=== PATIENT | male | born 1990 | race Caucasian/White ===

== ENCOUNTER 2020-01-13 14:19 | Emergency (ER) | payer MEDICAID ==
[2020-01-13 14:44] VITALS: BP 134/71; PULSE 91
--- NOTE | 2020-01-13 14:52 | EDM.PDOC ---
ED HPI GENERAL MEDICAL PROBLEM - General Chief Complaint: Lower Extremity Injury/Pain Stated Complaint: RIGHT FOOT IS PAINFUL Time Seen by Provider: 01/13/20 14:43 Source of Information: Reports: Patient, RN Notes Reviewed History Limitations: Reports: No Limitations - History of Present Illness INITIAL COMMENTS - FREE TEXT/NARRATIVE: 29-year-old gentleman presents emergency department a complaint of right foot pain, yesterday he accidentally kicked a metal cassie while attempting to kick a ball. Pain has increased over the last 12 hours Right Upper Foot Pain Score (Numeric/FACES): 4 - Related Data Allergies Allergy/AdvReac Type Severity Reaction Status Date / Time No Known Allergies Allergy Verified 08/11/15 22:21 Home Meds: Home Meds NK [No Known Home Meds] 01/13/20 [History] Past Medical History Respiratory History: Reports: Asthma Neurological History: Reports: Concussion, Migraines Oncologic (Cancer) History: Reports: Other (See Below) Other Oncologic History: testicular - Past Surgical History Male Surgical History: Reports: Vasectomy Musculoskeletal Surgical History: Reports: Other (See Below) Social & Family History - Tobacco Use Smoking Status *Q: Never Smoker - Caffeine Use Caffeine Use: Reports: Coffee, Energy Drinks, Soda - Recreational Drug Use Recreational Drug Use: No Review of Systems - Review of Systems Review Of Systems: See Below Musculoskeletal: Reports: Foot Pain Skin: Reports: No Symptoms ED EXAM, GENERAL - Physical Exam Exam: See Below Free Text/Narrative:: Examination of the right foot I do not appreciate any erythema there is no edema noted he is tender to palpation over metatarsals 3 and 4 full range of motion of all digits pedal pulses +2 Exam Limited By: No Limitations General Appearance: Alert, WD/WN, No Apparent Distress Course - Vital Signs Last Recorded V/S: Last Vital Signs Temp 97.4 F 01/13/20 14:45 Pulse 91 01/13/20 14:45 Resp 16 01/13/20 14:45 BP 134/71 01/13/20 14:45 Pulse Ox 95 01/13/20 14:45 - Orders/Labs/Meds Meds: Medications Discontinued Medications Generic Name Dose Route Start Last Admin Trade Name Freq PRN Reason Stop Dose Admin Ketorolac Tromethamine 60 mg 01/13/20 15:51 01/13/20 15:58 Toradol IM 01/13/20 15:52 60 mg ONETIME ONE Administration Departure - Departure Time of Disposition: 16:14 Disposition: Home, Self-Care 01 Condition: Fair Clinical Impression: Contusion of right foot Qualifiers: Encounter type: initial encounter Qualified Code(s): S90.31XA - Contusion of right foot, initial encounter - Discharge Information Instructions: Foot Contusion, [id number] Referrals: PCP,None [Primary Care Provider] - Forms: ED Department Discharge Additional Instructions: Use Tylenol or Motrin as needed for pain control please followup with your primary care provider in 3-5 days if not better, please call return to the emergency department with worsening of symptoms. Sepsis Event Note (ED) - Evaluation Sepsis Screening Result: No Definite Risk - Focused Exam Vital Signs: Vital Signs Temp Pulse Resp BP Pulse Ox 01/13/20 14:45 97.4 F 91 16 134/71 95 01/13/20 14:43 97.4 F 91 16 134/71 95 - Assessment/Plan Plan: Assessment Acuity = acute Site and laterality = bone contusion right foot Etiology = secondary to trauma Manifestations = pain Location of injury = Home Lab values = x-ray reveals no fracture Plan He was placed in a walking boot which did provide good support Toradol did provide some relief you use ibuprofen and Tylenol at home for pain relief follow-up primary care 3 to 5 days if not better This note was dictated using [facility] voice recognition software please call with any questions on syntax or grammar.
[2020-01-13] MEDS ORDERED: Ketorolac 60 MG/2 ML SDV IM ONE (15:51)
--- NOTE | 2020-01-13 15:53 | CRLCR ---
Indication: Accidentally connected with a pipe. Technique: Three views of the right foot. Comparison: None Findings: A bipartite medial sesamoid bone is identified. No fracture or subluxation is identified. Impression: No acute fracture Dictated by Echo Waters MD @ Jan 13 2020 3:50PM Signed by Dr. Echo Waters @ Jan 13 2020 3:51PM
== END 2020-01-13 16:19 | disposition home or self-care (01) ==
LOC: JP.ED 14:19
DX: S90.31XA Contusion of right foot, initial encounter (principal); J45.909 Unspecified asthma, uncomplicated; W22.8XXA Striking against or struck by other objects, initial encounter
CPT/HCPCS: 73630; 96372; 99283; J1885

== ENCOUNTER 2020-11-16 01:16 | Emergency (ER) | payer MEDICAID ==
[2020-11-16] MEDS ORDERED: Diphtheria,Pertussis(Acell),Tetanus Vaccine 0.5 ML Syringe IM ONE (02:08)
[2020-11-16] MEDS ORDERED: Bacitracin Oint 1 GM U/D Packet TOP ONE (02:09)
[2020-11-16 02:10] VITALS: BP 130/71; PULSE 118
--- NOTE | 2020-11-16 02:41 | EDM.PDOC ---
ED HPI GENERAL MEDICAL PROBLEM - General Chief Complaint: Laceration Stated Complaint: CUT RIGHT HAND Time Seen by Provider: 11/16/20 02:00 Source of Information: Reports: Patient, Old Records, RN History Limitations: Reports: No Limitations - History of Present Illness INITIAL COMMENTS - FREE TEXT/NARRATIVE: 30 yo male lacerated his R wrist and hand with broken glass before arrival. He is not sure about tetanus. Here for repair. Has been drinking. Onset: Today, Sudden Onset Date: 11/16/20 Duration: Minutes:, Constant Location: Reports: Upper Extremity, Right Quality: Reports: Burning Severity: Mild Improves with: Reports: None Worsens with: Reports: None Context: Reports: Trauma Associated Symptoms: Reports: No Other Symptoms Treatments SERVICE LEARNING COORDINATOR: Reports: Other (see below) (none) - Related Data Allergies Allergy/AdvReac Type Severity Reaction Status Date / Time No Known Allergies Allergy Verified 11/16/20 02:05 Home Meds: Home Meds NK [No Known Home Meds] 01/13/20 [History] Past Medical History Respiratory History: Reports: Asthma Musculoskeletal History: Reports: Arthritis, Back Pain, Chronic, Fracture, Neck Pain, Chronic Other Musculoskeletal History: nose fx, finger fx Neurological History: Reports: Concussion, Migraines Oncologic (Cancer) History: Reports: Other (See Below) Other Oncologic History: testicular - Infectious Disease History Infectious Disease History: Reports: Chicken Pox - Past Surgical History Male Surgical History: Reports: Vasectomy Musculoskeletal Surgical History: Reports: Other (See Below) Other Musculoskeletal Surgeries/Procedures:: left hand Social & Family History - Tobacco Use Tobacco Use Status *Q: Former Tobacco User Used Tobacco, but Quit: Yes Month/Year Tobacco Last Used: 2018 - Caffeine Use Caffeine Use: Reports: None - Alcohol Use Date of Last Drink: 11/16/20 - Recreational Drug Use Recreational Drug Use: Yes Recreational Drug Type: Reports: Marijuana/Hashish Recreational Drug Use Frequency: Monthly ED ROS GENERAL - Review of Systems Review Of Systems: See Below Constitutional: Reports: No Symptoms Skin: Reports: Wound (R radial wrist and R hand dorsally. ) Neurological: Reports: No Symptoms Psychiatric: Reports: No Symptoms ED EXAM, SKIN/RASH Exam: See Below Exam Limited By: No Limitations General Appearance: Alert, WD/WN, No Apparent Distress Extremities: Other (2 separate lacerations of the R wrist and R hand. No arterial bleeders. ) Neurological: Alert, Oriented, CN II-XII Intact, Normal Cognition, No Motor/Sensory Deficits Psychiatric: Normal Affect, Normal Mood Skin: Warm, Dry, Normal Color, No Rash, Wound/Incision (4 cm laceration of the R wrist and a 3.8 cm lac of the R hand dorsum). No: Intact Location, Skin: Upper Extremity, Right Characteristics: Linear Associated features: Tenderness. No: Warmth, Induration, Lymphangitis ED SKIN PROCEDURES - Laceration/Wound Repair Right Lateral Wrist Appearance: Subcutaneous, Linear (curved shape), Clean Distal NVT: Neuro & Vascular Intact, No Tendon Injury Anesthetic Type: Local Local Anesthesia - Lidocaine (Xylocaine): 1% with EPI Local Anesthetic Volume: 5cc Skin Prep: Saline Saline Irrigation (cc's): 60 Exploration/Debridement/Repair: Wound Explored Closed with: Sutures Lac/Wound length In cm: 4 Suture Size: 5-0 # of Sutures: 7 Suture Type: Nylon, Interrupted, Simple, Mattress Drain Placement: No Sterile Dressing Applied: Nurse Tetanus Status Addressed: Yes Complications: No Right Dorsal Hand Appearance: Subcutaneous, Linear, Clean Distal NVT: Neuro & Vascular Intact, No Tendon Injury Anesthetic Type: Local Local Anesthesia - Lidocaine (Xylocaine): 1% with EPI Local Anesthetic Volume: 5cc Skin Prep: Saline Saline Irrigation (cc's): 35 Exploration/Debridement/Repair: Wound Explored Closed with: Sutures Lac/Wound length In cm: 3.8 Suture Size: 5-0 # of Sutures: 4 Suture Type: Nylon, Interrupted, Simple, Mattress Drain Placement: No Sterile Dressing Applied: Nurse Tetanus Status Addressed: Yes Complications: No Course - Vital Signs Last Recorded V/S: Last Vital Signs Temp 36.2 C 11/16/20 02:05 Pulse 118 H 11/16/20 02:05 Resp 18 11/16/20 02:05 BP 130/71 11/16/20 02:05 Pulse Ox 93 L 11/16/20 02:05 - Orders/Labs/Meds Orders: Active Orders 24 hr Category Date Time Status Vaccines to be Administered [RC] PER UNIT ROUTINE Care 11/16/20 02:09 Active Meds: Medications Discontinued Medications Generic Name Dose Route Start Last Admin Trade Name Freq PRN Reason Stop Dose Admin Bacitracin 1 dose 11/16/20 02:09 Bacitracin Oint 1 Gm U/D Packet TOP 11/16/20 02:10 ONETIME ONE Diphtheria/Tetanus/Acell Pertussis 0.5 ml 11/16/20 02:08 Diphtheria,Pertussis(Acell),Tetanus Vaccine 0.5 Ml Syringe IM 11/16/20 02:09 .ONCE ONE Departure - Departure Time of Disposition: 02:50 Disposition: Home, Self-Care 01 Condition: Good Clinical Impression: Laceration of right hand Qualifiers: Encounter type: initial encounter Qualified Code(s): S61.411A - Laceration without foreign body of right hand, initial encounter Laceration of wrist, right Qualifiers: Encounter type: initial encounter Qualified Code(s): S61.511A - Laceration without foreign body of right wrist, initial encounter - Discharge Information *PRESCRIPTION DRUG MONITORING PROGRAM REVIEWED*: Not Applicable *COPY OF PRESCRIPTION DRUG MONITORING REPORT IN PATIENT CALIN: Not Applicable Instructions: Laceration Care, Adult, [id number] Referrals: PCP,None [Primary Care Provider] - Additional Instructions: Clean wounds twice daily with soap and water. Dry. Apply antibiotic ointment and a new dressing. Recheck for signs of infection. Stitches out in 9 days. Acetaminophen for pain relief as needed. Sepsis Event Note (ED) - Evaluation Sepsis Screening Result: No Definite Risk - Focused Exam Vital Signs: Vital Signs Temp Pulse Resp BP Pulse Ox 11/16/20 02:05 36.2 C 118 H 18 130/71 93 L - My Orders Last 24 Hours: My Active Orders 11/16/20 02:09 Vaccines to be Administered [RC] PER UNIT ROUTINE - Assessment/Plan Last 24 Hours: My Active Orders 11/16/20 02:09 Vaccines to be Administered [RC] PER UNIT ROUTINE
== END 2020-11-16 02:52 | disposition home or self-care (01) ==
LOC: JP.ED 01:16
DX: S61.411A Laceration without foreign body of right hand, initial encounter (principal); S61.511A Laceration without foreign body of right wrist, initial encounter; Z87.891 Personal history of nicotine dependence; Z23 Encounter for immunization; W25.XXXA Contact with sharp glass, initial encounter
CPT/HCPCS: 12004; 90471; 90715; 99282-25